=== PATIENT | male | born 1980 ===

== ENCOUNTER 2021-03-25 00:34 | Emergency (ER) | payer OTHER, SELFPAY ==
[2021-03-25] MEDS ORDERED: HYDROCODONE/APAP 5/325 MG TAB ONE (01:28)
[2021-03-25] MEDS ORDERED: FLUORESCEIN SODIUM 1 MG/WRAP ONE (01:32)
[2021-03-25] MEDS ORDERED: TETRACAINE HCL 0.5% 4ML OPTH ONE (01:32)
[2021-03-25] MEDS ORDERED: CYCLOPENTOLATE 2% OPTH 2 ML ONE (02:13)
--- NOTE | 2021-03-25 02:13 | ER ---
Nurse's Notes [facility] Name: Ethan Joy Age: 40 yrs Sex: Male : 1980 Arrival Date: 03/25/2021 Time: 00:37 Bed 14 Private MD: Diagnosis: UV Keratitis, Bilateral Presentation: 03/25 00:55 Chief complaint: Patient states: welding burn today from work. Coronavirus screen: fu Vaccine status: Patient reports being unvaccinated. Ebola Screen: No symptoms or risks identified at this time. Mechanism of Injury:. The patient denies any loss of vision. Initial Sepsis Screen: Does the patient meet any 2 criteria? No. Patient's initial sepsis screen is negative. Does the patient have a suspected source of infection? No. Patient's initial sepsis screen is negative. Risk Assessment: Do you want to hurt yourself or someone else? Patient reports no desire to harm self or others. Onset of symptoms was March 24, 2021. 00:55 Method Of Arrival: Ambulatory fu 00:55 Acuity: JONAH 3 fu Historical: - Allergies: 01:01 No Known Allergies; fu - Home Meds: 01:01 None [Active]; fu - PMHx: 01:01 None; fu - PSHx: 01:01 None; fu - Immunization history:: Client reports having NOT received the Covid vaccine. - Social history:: Smoking status: Patient reports the use of cigarette tobacco products, smokes one pack cigarettes per day. Screenin:42 Abuse screen: Denies threats or abuse. Nutritional screening: No deficits noted. fu Tuberculosis screening: No symptoms or risk factors identified. Fall Risk None identified. Assessment: 00:52 General: Appears uncomfortable, Behavior is calm, cooperative, appropriate for age, fu Denies fever, feeling ill, fatigue, chills. Pain: Complains of pain in both eyes Pain does not radiate. Pain currently is 8 out of 10 on a pain scale. Pain began 1 hour ago. Neuro: Level of Consciousness is awake, alert, obeys commands, Oriented to person, place, time, situation, Moves all extremities. Gait is steady, Speech is normal, Facial symmetry appears normal. Cardiovascular: Denies chest pain, nausea, vomiting. Respiratory: Respiratory effort is even, Respiratory pattern is regular. GI: No signs and/or symptoms were reported involving the gastrointestinal system. EENT: Eyes are tearing on both eyes Sclera/Cornea are reddened in outer aspect of conjuctiva of right eye, inner aspect of conjuctiva of right eye, outer aspect of conjuctiva of left eye and inner aspect of conjunctiva of left eye. Derm: No signs and/or symptoms reported regarding the dermatologic system. Musculoskeletal: Range of motion: intact in all extremities. 01:41 Reassessment: VO from Dr. Castañeda to give Sullivan 5/325 mg. fu 02:15 Reassessment: Patient and/or family updated on plan of care and expected duration. Pain fu level reassessed. cyclogyl opth drops and erythromycin opth oint not available, MD notified. Vital Signs: 00:55 BP 105 / 73; Pulse 67; Resp 16; Temp 97.8; Pulse Ox 97% on R/A; Weight 72.57 kg; Height fu 6 ft. (182.88 cm); Pain 8/10; 01:00 BP 105 / 73; Pulse 67; Resp 16; Temp 97.8(O); Pulse Ox 97% on R/A; Pain 8/10; fu 01:45 BP 109 / 81; Pulse 56; Resp 16; Pulse Ox 91% on R/A; Pain 4/10; fu 00:55 Body Mass Index 21.70 (72.57 kg, 182.88 cm) fu Visual Acuity: 02:03 Left Eye Visual acuity 20/20, Pupil size 2 mm, Brisk, Reactive To Accomodation; Right fu Eye Visual acuity 20/20, Pupil size 2 mm, Brisk, Reactive To Accomodation; Without Lenses; ED Course: 00:37 Patient arrived in ED. bp1 00:52 Johnny David, JULES is Primary Nurse. fu 00:58 Triage completed. fu 01:12 Axel Castañeda MD is Attending Physician. mh7 01:42 Pulse ox on. NIBP on. fu 02:00 Arm band placed on right wrist. fu 02:11 Annika Horton MD is Referral Physician. mh7 02:36 No provider procedures requiring assistance completed. Patient did not have IV access fu during this emergency room visit. 02:38 Patient has correct armband on for positive identification. Bed in low position. Call fu light in reach. Side rails up X 1. Administered Medications: 01:43 Drug: Tetracaine Drops 0.5 % 1 drops Route: Ophthalmic; Site: both eyes; fu 02:00 Follow up: Response: No adverse reaction fu 01:43 Drug: HYDROcodone-acetaminophen 5 mg-325 mg 1 tabs Route: PO; fu 02:00 Follow up: Response: Pain is decreased fu 01:50 Drug: Fluorescein Strip 2 strip {Note: Administered by Dr Castañeda.} Route: Ophthalmic; fu Site: both eyes; 02:39 Not Given (not availablee): Cyclogyl Drops (0.5 %) 1 drops Ophthalmic once fu 02:39 Not Given (not availablee): ERYTHromycin Ointment 1 application Ophthalmic once fu Outcome: 02:[address] . [facility] 02:36 Condition: good fu 02:36 Discharge instructions given to patient, Instructed on discharge instructions, follow up and referral plans. Demonstrated understanding of instructions, follow-up care, Prescriptions given X 4. 02:36 Discharged to home ambulatory. fu 02:38 Patient left the ED. fu Signatures: Johnny David, RN RN Suri Herrera Maurice, MD MD mh7
--- NOTE | 2021-03-25 02:14 | EDPHYS ---
Physician Documentation [facility] Name: Ethan Joy Age: 40 yrs Sex: Male : 1980 Arrival Date: 03/25/2021 Time: 00:37 Bed 14 Private MD: ARABELLA Physician Axel Castañeda HPI: 03/25 01:26 This 40 yrs old Male presents to ER via Ambulatory with complaints of Eye Pain, Loss Of mh7 Vision. 01:26 The patient is experiencing burning, pain, The patient sustained Unknown. to both eyes, mh7 caused by Welders arc. Onset: The symptoms/episode began/occurred last night. Duration: the symptoms are continuous. Aggravated by light, Alleviated by nothing. Associated signs and symptoms: Pertinent negatives: chills, dizziness, ear ache, fever, headache, runny nose. Patient does not utilize any form of vision correction. Severity of symptoms: At their worst the symptoms were moderate last night, in the emergency department the symptoms are unchanged. Historical: - Allergies: 01:01 No Known Allergies; fu - Home Meds: 01: None [Active]; fu - PMHx: 01: None; fu - PSHx: 01:01 None; fu - Immunization history:: Client reports having NOT received the Covid vaccine. - Social history:: Smoking status: Patient reports the use of cigarette tobacco products, smokes one pack cigarettes per day. ROS: 01:26 Constitutional: Negative for fever, chills, and weight loss, ENT: Negative for injury, mh7 pain, and discharge, Neck: Negative for injury, pain, and swelling, Cardiovascular: Negative for chest pain, palpitations, and edema, Respiratory: Negative for shortness of breath, cough, wheezing, and pleuritic chest pain, Abdomen/GI: Negative for abdominal pain, nausea, vomiting, diarrhea, and constipation, Back: Negative for injury and pain, : Negative for injury, bleeding, discharge, and swelling, MS/Extremity: Negative for injury and deformity, Skin: Negative for injury, rash, and discoloration, Neuro: Negative for headache, weakness, numbness, tingling, and seizure, Psych: Negative for depression, anxiety, suicide ideation, homicidal ideation, and hallucinations, Allergy/Immunology: Negative for hives, rash, and allergies, Endocrine: Negative for neck swelling, polydipsia, polyuria, polyphagia, and marked weight changes, Hematologic/Lymphatic: Negative for swollen nodes, abnormal bleeding, and unusual bruising. Exam: 01:26 Head/Face: Normocephalic, atraumatic. Neck: Trachea midline, no thyromegaly or masses mh7 palpated, and no cervical lymphadenopathy. Supple, full range of motion without nuchal rigidity, or vertebral point tenderness. No Meningismus. Chest/axilla: Normal chest wall appearance and motion. Nontender with no deformity. No lesions are appreciated. Cardiovascular: Regular rate and rhythm with a normal S1 and S2. No gallops, murmurs, or rubs. Normal PMI, no JVD. No pulse deficits. Respiratory: Lungs have equal breath sounds bilaterally, clear to auscultation and percussion. No rales, rhonchi or wheezes noted. No increased work of breathing, no retractions or nasal flaring. Abdomen/GI: Soft, non-tender, with normal bowel sounds. No distension or tympany. No guarding or rebound. No evidence of tenderness throughout. Back: No spinal tenderness. No costovertebral tenderness. Full range of motion. Skin: Warm, dry with normal turgor. Normal color with no rashes, no lesions, and no evidence of cellulitis. MS/ Extremity: Pulses equal, no cyanosis. Neurovascular intact. Full, normal range of motion. Neuro: Awake and alert, GCS 15, oriented to person, place, time, and situation. Cranial nerves II-XII grossly intact. Motor strength 5/5 in all extremities. Sensory grossly intact. Cerebellar exam normal. Normal gait. Psych: Awake, alert, with orientation to person, place and time. Behavior, mood, and affect are within normal limits. 01:26 Constitutional: The patient appears in no acute distress, alert, awake, uncomfortable. 01:57 Eyes: Periorbital structures: appear normal, Pupils: equal, round, and reactive to [facility] light and accomodation, Extraocular movements: intact throughout, Conjunctiva: injected, bilaterally, Corneas: abrasion, that is small, on the left, on the right, at 6 o'clock, a fluorescein strip employed to appreciate the findings. 01:57 Eyes: Sclera: no appreciated abnormality, Lids and lashes: appear normal, funduscopic [facility] exam reveals no obvious abnormalities, Visual patel: are intact, Nystagmus: is not appreciated, Intraocular pressure: right eye = 16mmHg, left eye = 15mmHg, No Slit Lamp Available. Vital Signs: 00:55 BP 105 / 73; Pulse 67; Resp 16; Temp 97.8; Pulse Ox 97% on R/A; Weight 72.57 kg; Height fu 6 ft. (182.88 cm); Pain 8/10; 01:00 BP 105 / 73; Pulse 67; Resp 16; Temp 97.8(O); Pulse Ox 97% on R/A; Pain 8/10; fu 01:45 BP 109 / 81; Pulse 56; Resp 16; Pulse Ox 91% on R/A; Pain 4/10; fu 00:55 Body Mass Index 21.70 (72.57 kg, 182.88 cm) fu Visual Acuity: 02:03 Left Eye Visual acuity 20/20, Pupil size 2 mm, Brisk, Reactive To Accomodation; Right fu Eye Visual acuity 20/20, Pupil size 2 mm, Brisk, Reactive To Accomodation; Without Lenses; MDM: 02:10 Differential diagnosis: Corneal abrasion of both eyes. Corneal ulcer of both eyes. mh7 Foreign body in both eyes. Acute iritis of both eyes. Acute glaucoma in both eyes. Ultraviolet keratitis in both eyes. Data reviewed: vital signs, nurses notes. Counseling: I had a detailed discussion with the patient and/or guardian regarding: the historical points, exam findings, and any diagnostic results supporting the discharge/admit diagnosis, the need for outpatient follow up, an opthalmologist. Response to treatment: the patient's symptoms have markedly improved after treatment. 02:12 Patient medically screened. [facility] Administered Medications: 01:43 Drug: Tetracaine Drops 0.5 % 1 drops Route: Ophthalmic; Site: both eyes; fu 02:00 Follow up: Response: No adverse reaction fu 01:43 Drug: HYDROcodone-acetaminophen 5 mg-325 mg 1 tabs Route: PO; fu 02:00 Follow up: Response: Pain is decreased fu 01:50 Drug: Fluorescein Strip 2 strip {Note: Administered by Dr Castañeda.} Route: Ophthalmic; fu Site: both eyes; 02:39 Not Given (not availablee): Cyclogyl Drops (0.5 %) 1 drops Ophthalmic once fu 02:39 Not Given (not availablee): ERYTHromycin Ointment 1 application Ophthalmic once fu Disposition Summary: 03/25/21 02:12 Discharge Ordered Location: Home [facility] Problem: new [facility] Symptoms: have improved [facility] Condition: Stable [facility] Diagnosis - UV Keratitis, Bilateral mh7 Followup: [facility] - With: Private Physician - When: 1 - 2 days - Reason: Worsening of condition, Recheck today's complaints, Continuance of care, Re-evaluation by your physician Followup: [facility] - With: Annika Horton MD - When: 1 - 2 days - Reason: Worsening of condition, Recheck today's complaints Discharge Instructions: - Discharge Summary Sheet [facility] - Ultraviolet Keratitis, [id number] [facility] Forms: - Medication Reconciliation Form [facility] - Thank You Letter [facility] - Antibiotic Education [facility] - Prescription Opioid Use [facility] Prescriptions: - Cyclogyl 1 % Ophthalmic drops - instill 1 drop by OPHTHALMIC route 3 times per day for 3 days; 1 bottle; [facility] Refills: 0, Product Selection Permitted - Ibuprofen 800 mg Oral Tablet - take 1 tablet by ORAL route every 8 hours As needed take with food; 15 tablet; [facility] Refills: 0, Product Selection Permitted - Erythromycin 5 mg/gram (0.5 %) Ophthalmic Ointment - apply 1 ribbon by OPHTHALMIC route every 6 hours for 7 days; 1 tube; Refills: [facility] 0, Product Selection Permitted - Tylenol-Codeine #3 300 mg-30 mg Oral - take 2 tablet by ORAL route every 6 hours As needed; 15 tablet; Refills: 0, [facility] Product Selection Permitted Signatures: Johnny David RN RN Axel Berrios MD MD [facility]
[2021-03-25 02:45] VITALS: BP 105/73; TEMP 97.8; O2SAT 97
== END 2021-03-25 02:38 | disposition home or self-care (01) ==
LOC: ER 00:34
DX: H16.8 Other keratitis (principal); F17.210 Nicotine dependence, cigarettes, uncomplicated
CPT/HCPCS: 99283